=== PATIENT | male | born 1975 | race Caucasian/White ===

== ENCOUNTER 2019-01-19 08:35 | Day surgery (SDC) | payer BC, OTHER ==
[~2019-01-19] VITALS: Ht 180.3 cm; Wt 91.0 kg
[~2019-01-19 08:35] MED LIST: LIDOCAINE 1%-EPI 1:100K, 20ML ONE; ROPIvacaine/PF 0.5%, 30 ML ONE
[2019-01-19] MEDS ORDERED: LACTATED RINGERS 1,000 ML IV SCH (09:14)
[2019-01-19] MEDS ORDERED: NONE PER PT (09:21)
[2019-01-19] MEDS ORDERED: GABAPENTIN 300 MG CAPSULE PO ONE (09:30)
[2019-01-19] MEDS ORDERED: PLEASE ENTER ALLERGIES MC SCH (09:30)
[2019-01-19] MEDS ORDERED: ACETAMINOPHEN 500 MG TABLET PO ONE (09:30)
[2019-01-19] MEDS ORDERED: LIDOCAINE-MPF 1%, 2ML INFIL ONE (09:30)
[2019-01-19] MEDS ORDERED: SCOPOLAMINE PATCH, 1.5MG PATCH.TD72 TD ONE (09:30)
[2019-01-19 09:50] VITALS: BP 148/95
[2019-01-19] MEDS ORDERED: FENTANYL PF 100 MCG/2ML ONE ×2 (11:01→11:33)
[2019-01-19] MEDS ORDERED: MIDAZOLAM 1 MG/ML, 2ML ONE (11:01)
[2019-01-19] MEDS ORDERED: ROCURONIUM 10MG/ML,5ML ONE (11:02)
[2019-01-19] MEDS ORDERED: PROPOFOL 10 MG/ML, 20ML ONE (11:02)
[2019-01-19] MEDS ORDERED: CEFAZOLIN 1,000 MG ONE ×2 (11:02)
[2019-01-19] MEDS ORDERED: SUCCINYLCHOLINE 20 MG/ML, 10ML ONE (11:02)
[2019-01-19] MEDS ORDERED: DEXAMETHASONE 4 MG/ML, 1ML ONE ×2 (11:02)
[2019-01-19] MEDS ORDERED: ALBUTEROL SULFATE 2.5 MG/3 ML NPPB PRN (12:00)
[2019-01-19] MEDS ORDERED: EPHEDRINE 50 MG/ML, 1ML IVPush PRN (12:00)
[2019-01-19] MEDS ORDERED: HYDROmorphone 2 MG/ML, 1ML IVPush PRN (12:00)
[2019-01-19] MEDS ORDERED: MIDAZOLAM 1 MG/ML, 2ML IV PRN (12:00)
[2019-01-19] MEDS ORDERED: OXYcodone 5 MG/5 ML ORAL.SOL UDC PO PRN ×2 (12:00→12:30)
[2019-01-19] MEDS ORDERED: hydrALAzine 20 MG/ML, 1ML IV PRN (12:00)
[2019-01-19] MEDS ORDERED: ONDANSETRON 2MG/ML, 2ML IV PRN (12:00)
[2019-01-19] MEDS ORDERED: ONDANSETRON ODT 8 MG PO PRN (12:00)
[2019-01-19] MEDS ORDERED: PROMETHAZINE 12.5 MG SUPP PR PRN (12:00)
[2019-01-19] MEDS ORDERED: PROMETHAZINE 25 MG/ML, 1ML IV PRN (12:00)
[2019-01-19] MEDS ORDERED: FENTANYL PF 100 MCG/2ML IV PRN (12:00)
[2019-01-19] MEDS ORDERED: HALOPERIDOL 5 MG/ML IV PRN (12:00)
[2019-01-19] MEDS ORDERED: LABETALOL 5MG/ML, 20ML IV PRN (12:00)
[2019-01-19] MEDS ORDERED: DIAZEPAM 5 MG/ML, 2ML IVPush PRN (12:00)
[2019-01-19] MEDS ORDERED: MEPERIDINE/PF 25MG/ML,1ML IVPush PRN (12:00)
[2019-01-19] MEDS ORDERED: OXYcodone 5 MG/5 ML ORAL.SOL UDC ONE (12:21)
[2019-01-19] MEDS ORDERED: HYDROmorphone 1 MG/ML, 1ML VIAL ONE (12:29)
[2019-01-19] MEDS: HYDROmorphone 2 MG/ML, 1ML IVPush PRN ×2 (12:31→12:39)
== END 2019-01-19 13:50 | disposition home or self-care (01) ==
LOC: OUT 08:35
PROVIDERS: ATTEND Orthopaedic Surgery
DX: S83.232A Complex tear of medial meniscus, current injury, left knee, initial encounter (principal); S83.512A Sprain of anterior cruciate ligament of left knee, initial encounter; S83.282A Other tear of lateral meniscus, current injury, left knee, initial encounter; M17.12 Unilateral primary osteoarthritis, left knee; F17.200 Nicotine dependence, unspecified, uncomplicated; Z79.1 Long term (current) use of non-steroidal anti-inflammatories (NSAID); V86.56XA Driver of dirt bike or motor/cross bike injured in nontraffic accident, initial encounter; Y93.55 Activity, bike riding; Y92.89 Other specified places as the place of occurrence of the external cause; Y99.8 Other external cause status
CPT/HCPCS: 29880; J0330; J0690; J1100; J1170; J2250; J2704; J2795; J3010; J3490; J7120